=== PATIENT | male | born 1940 | race Hispanic/Latino ===

== ENCOUNTER → 2018-01-28 | Outpatient (CLI) | payer OTHER ==
[~2018-01-28] MED LIST: ASPI-555 PO; CLOP75TA32 PO; ISOS30TA6 PO; REGADENOSON 0.4 MG/5 ML PF SYG IVP SCH; SIMV40TA59 PO; [UNRECOGNIZED DRUG - OTHER] PO
== END | disposition home or self-care (01) ==
LOC: SHCH 08:23
PROVIDERS: ATTEND Internal Medicine Cardiovascular Disease
DX: R06.09 Other forms of dyspnea (principal)
CPT/HCPCS: 78452; 93017; 96374; A9500 ×2

== ENCOUNTER 2018-02-25 00:34 | Inpatient (IN) | payer OTHER | END 2018-03-01 16:25 | disposition home or self-care (01) | LOC: EDH 00:34 → EDHIP 03:45 → 3CH 04:19 | DX: I50.22 Chronic systolic (congestive) heart failure (principal); N18.6 End stage renal disease; D68.59 Other primary thrombophilia; I13.2 Hypertensive heart and chronic kidney disease with heart failure and with stage 5 chronic kidney disease, or end stage renal disease; C90.00 Multiple myeloma not having achieved remission; I25.10 Atherosclerotic heart disease of native coronary artery without angina pectoris; R74.8 Abnormal levels of other serum enzymes; Z99.2 Dependence on renal dialysis; W19.XXXA Unspecified fall, initial encounter; I44.1 Atrioventricular block, second degree; I25.5 Ischemic cardiomyopathy; Z95.1 Presence of aortocoronary bypass graft ==

== ENCOUNTER → 2018-03-11 | Outpatient (CLI) | payer OTHER ==
[~2018-03-11] MED LIST changes: +ACET325T51 PO; +ASCO500T9 PO; -ASPI-555 PO; +ATOR40TA69 PO; -CLOP75TA32 PO; +DOCU100C33 PO; +FERR325T22 PO; +FOLI1TAB85 PO; -ISOS30TA6 PO; +LACT10SO9 PO; +LISI2.5T2 PO; +PANT40TA25 PO; -REGADENOSON 0.4 MG/5 ML PF SYG IVP SCH; -SIMV40TA59 PO; +TRAM50TA4 PO; -[UNRECOGNIZED DRUG - OTHER] PO
== END | disposition home or self-care (01) ==
LOC: SHCH 13:56
PROVIDERS: ATTEND Internal Medicine Cardiovascular Disease
DX: R60.0 Localized edema (principal)
CPT/HCPCS: 93970

== ENCOUNTER 2018-03-17 09:37 | Inpatient (IN) | payer OTHER ==
[~2018-03-17] VITALS: Ht 180.3 cm; Wt 73.6 kg
[2018-03-17] MEDS ORDERED: FUROSEMIDE 10 MG/ML 4ML VIAL ONE (10:16)
[2018-03-17] MEDS ORDERED: ZOSYN 3.375GM+NS 50ML 50 ML IV ONE (10:16)
[2018-03-17] MEDS ORDERED: SODIUM CHLORIDE 0.9% 50 ML IV ONE (10:16)
[2018-03-17 10:26] LABS: BASOPHILS % (AUTO) 0.3 % (0.0-5.0); HEMATOCRIT 28.9 % (42-54); LYMPHOCYTES % (AUTO) 14.7 % (21.0-51.0); MEAN CORPUSCULAR HEMOGLOBIN 31.6 pg (27.0-33.0); MEAN CORPUSCULAR HGB CONC 32.8 g/dL (32.0-36.0); MEAN CORPUSCULAR VOLUME 96.2 fL (79-99); MONOCYTES % (AUTO) 9.6 % (3.0-13.0); NEUTROPHILS % (AUTO) 74.4 % (40.0-77.0); PLATELET COUNT (AUTO) 117 K/uL (130-400); RED CELL DISTRIBUTION WIDTH 18.5 % (11.0-15.5); WHITE BLOOD COUNT (AUTO) 7.6 K/uL (4.8-10.8)
[2018-03-17 10:43] LABS: CREATININE 6.5 mg/dL (0.5-1.5); POTASSIUM 4.1 mmol/L (3.5-5.1)
[2018-03-17 10:44] LABS: INR 1.09 (0.85-1.15); PARTIAL THROMBOPLASTIN TIME 27.7 SEC (26.3-35.5); PROTHROMBIN TIME 11.4 SEC (9.6-11.6)
[2018-03-17 10:49] LABS: ALBUMIN 2.9 g/dL (3.5-5.0); TOTAL PROTEIN, SERUM 6.5 g/dL (6.0-8.3)
[2018-03-17 10:57] LABS: B-TYPE NATRIURETIC PEPTIDE > 5000 pg/mL (0-100)
[2018-03-17] MEDS ORDERED: HYDRALAZINE HCL 20 MG/ML VIAL IV PRN (12:45)
[2018-03-17] MEDS ORDERED: MORPHINE SULFATE 2 MG/ML 1ML SYG IV PRN (12:45)
[2018-03-17] MEDS ORDERED: LACTULOSE 20 GM/30 ML UDCUP PO PRN ×2 (12:45)
[2018-03-17] MEDS ORDERED: ONDANSETRON HCL 4 MG/2 ML VIAL IV PRN (12:45)
[2018-03-17] MEDS ORDERED: ACETAMINOPHEN 325 MG TAB PO PRN ×2 (12:45)
[2018-03-17 18:18] VITALS: BP 132/76
--- NOTE | 2018-03-17 18:19 | NUR ---
Patient received from ER. Patient came in with shortness of breath. Patient was diagnosed with pulmonary edema. Patient unable to attend his regular HD session today due to shortness of breath. Dr. Rodriguez was consulted. Dr. Gonzales was oncall for Michael. Will await call back to update on patient and the possibility of HD today. Patient was able to ambulate from Er bed to room bed with no problems. Patient is alert and orientated x3, pulses are are equal and strong. Pupils are equal and brisk. Lungs sound diminished and congested. Bowel sounds are normal. Patient has bilateral lower extremity edema +2.
[2018-03-17 19:18] LABS: ABG BASE EXCESS 4.3 mmol/L (-2.0-3.0); ABG HCO3 27.4 mmol/L (21.0-28.0); ABG OXYGEN SATURATION 95.1 % (95.0-99.0); ABG PCO2 36 mmHg (35-48)
[2018-03-17 19:25] VITALS: BP 130/71
[2018-03-17] MEDS: ATORVASTATIN CALCIUM 40 MG TABLET PO SCH (21:01)
[2018-03-17 23:12] VITALS: BP 143/79
[2018-03-18 03:49] VITALS: BP 139/76
[2018-03-18] MEDS: TRAMADOL HCL 50 MG TABLET PO PRN ×2 (04:16→18:33)
--- NOTE | 2018-03-18 05:05 | NUR ---
LEFT MESSAGE WITH SANJAY LOO WITH [facility]UTE DIALYSIS C[facility].
[2018-03-18 07:00] VITALS: BP 129/79
[2018-03-18] MEDS ORDERED: ENOXAPARIN SODIUM 30 MG/0.3 ML SQ SCH (09:00)
[2018-03-18] MEDS: DOCUSATE SODIUM 100 MG CAP PO SCH (10:09)
[2018-03-18] MEDS: FERROUS SULFATE 325 MG TABLET.DR PO SCH (10:09)
[2018-03-18] MEDS: ASCORBIC ACID 500 MG TAB PO SCH (10:09)
[2018-03-18] MEDS: PANTOPRAZOLE SODIUM 40 MG TABLET.DR PO SCH (10:09)
[2018-03-18] MEDS: FOLIC ACID/VITAMIN B COMP W-C 1 MG CAPSULE PO SCH (10:10)
[2018-03-18] MEDS: LISINOPRIL 2.5 MG TABLET PO SCH (10:10)
[2018-03-18 11:00] VITALS: BP 135/76
[2018-03-18] MEDS ORDERED: SODIUM CHLORIDE 0.9% 1000ML 1,000 ML IV ONE (11:05)
[2018-03-18] MEDS ORDERED: SODIUM CHLORIDE 3% FOR INHALATION 4 ML/AMP VIAL.NEB IH ONE (12:01)
[2018-03-18] MEDS ORDERED: HEPARIN SODIUM 5000UNIT/ML 1ML VIAL ONE (13:40)
[2018-03-18 16:00] VITALS: BP 126/64
--- NOTE | 2018-03-18 17:02 | NUR ---
DC Plan Discussed dcp with patient. Lives w/ . Denies provider or services. Has standard walker and cane. Goes to [facility] in [place] on . Denies having transportation issues to/from HD. States either drives self or will drive. 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 Discussed possible need for rehab in facility. Patient declined and verbalized felt safe returning home. DCP to home w/ . CD Addendum: 03/18/18 at 1704 by SUSANA AVELAR CM Amended: Links added.
[2018-03-18] MEDS ORDERED: SODIUM CHLORIDE 0.9% 1000ML 1,000 ML IV SCH (18:05)
[2018-03-18] MEDS ORDERED: HEPARIN SODIUM 5000UNIT/ML 1ML VIAL IJ PRN (18:15)
[2018-03-18 20:03] VITALS: BP 122/69
[2018-03-18] MEDS: ATORVASTATIN CALCIUM 40 MG TABLET PO SCH (21:13)
[2018-03-18 23:49] VITALS: BP 99/57
[2018-03-19 04:29] VITALS: BP 131/73
[2018-03-19 06:23] LABS: HEMATOCRIT 26.9 % (42-54); MEAN CORPUSCULAR HEMOGLOBIN 31.6 pg (27.0-33.0); MEAN CORPUSCULAR HGB CONC 32.7 g/dL (32.0-36.0); MEAN CORPUSCULAR VOLUME 96.5 fL (79-99); PLATELET COUNT (AUTO) 76 K/uL (130-400); RED BLOOD CELL COUNT(AUTO) 2.79 MIL/uL (4.50-6.20); RED CELL DISTRIBUTION WIDTH 18.7 % (11.0-15.5); WHITE BLOOD COUNT (AUTO) 6.3 K/uL (4.8-10.8)
[2018-03-19 06:45] LABS: TROPONIN I 0.19 ng/mL (0.00-0.06)
[2018-03-19 07:06] LABS: CREATININE 5.9 mg/dL (0.5-1.5); POTASSIUM 3.1 mmol/L (3.5-5.1); THYROID STIMULATING HORMONE 3.96 uIU/mL (0.36-3.74)
[2018-03-19 07:48] VITALS: BP 127/73
[2018-03-19 08:22] LABS: HEPATITIS A ANTIBODY IGM Negative (Negative); HEPATITIS B CORE IGM Negative (Negative); HEPATITIS Bs ANTIGEN SCREEN P Negative (Negative)
[2018-03-19 11:38] VITALS: BP 103/80
[2018-03-19] MEDS: PANTOPRAZOLE SODIUM 40 MG TABLET.DR PO SCH (12:33)
[2018-03-19] MEDS: ASCORBIC ACID 500 MG TAB PO SCH (12:33)
[2018-03-19] MEDS: FERROUS SULFATE 325 MG TABLET.DR PO SCH (12:33)
[2018-03-19] MEDS: FOLIC ACID/VITAMIN B COMP W-C 1 MG CAPSULE PO SCH (12:33)
[2018-03-19] MEDS: DOCUSATE SODIUM 100 MG CAP PO SCH (12:34)
[2018-03-19] MEDS: LISINOPRIL 2.5 MG TABLET PO SCH (12:34)
[2018-03-19] MEDS ORDERED: POTASSIUM CHLORIDE 10% ELIXIR 20 MEQ/15 ML UDCUP PO SCH (12:45)
[2018-03-19] MEDS ORDERED: SODIUM CHLORIDE 0.9% 1000ML 1,000 ML IV SCH (12:52)
[2018-03-19] MEDS ORDERED: HEPARIN SODIUM 5000UNIT/ML 1ML VIAL IJ PRN (13:00)
[2018-03-19 16:29] VITALS: BP 131/68
[2018-03-19 19:21] VITALS: BP 128/87
[2018-03-19] MEDS: ATORVASTATIN CALCIUM 40 MG TABLET PO SCH (20:37)
[2018-03-19] MEDS: TRAMADOL HCL 50 MG TABLET PO PRN (20:45)
[2018-03-19 23:55] VITALS: BP 132/65
[2018-03-20] VITALS (7 sets, daily range): BP systolic 127–152; BP diastolic 68–86
[2018-03-20 05:02] LABS: HEMATOCRIT 27.4 % (42-54); MEAN CORPUSCULAR HEMOGLOBIN 32.1 pg (27.0-33.0); MEAN CORPUSCULAR HGB CONC 33.2 g/dL (32.0-36.0); MEAN CORPUSCULAR VOLUME 96.4 fL (79-99); PLATELET COUNT (AUTO) 54 K/uL (130-400); RED BLOOD CELL COUNT(AUTO) 2.84 MIL/uL (4.50-6.20); RED CELL DISTRIBUTION WIDTH 18.7 % (11.0-15.5); WHITE BLOOD COUNT (AUTO) 5.9 K/uL (4.8-10.8)
[2018-03-20 05:17] LABS: INR 1.06 (0.85-1.15); PARTIAL THROMBOPLASTIN TIME 29.9 SEC (26.3-35.5); PROTHROMBIN TIME 11.1 SEC (9.6-11.6)
[2018-03-20 05:31] LABS: CREATININE 4.8 mg/dL (0.5-1.5); POTASSIUM 3.8 mmol/L (3.5-5.1)
[2018-03-20] MEDS: ASCORBIC ACID 500 MG TAB PO SCH (08:13)
[2018-03-20] MEDS: PANTOPRAZOLE SODIUM 40 MG TABLET.DR PO SCH (08:13)
[2018-03-20] MEDS: FOLIC ACID/VITAMIN B COMP W-C 1 MG CAPSULE PO SCH (08:13)
[2018-03-20] MEDS: LISINOPRIL 2.5 MG TABLET PO SCH (08:13)
[2018-03-20] MEDS: FERROUS SULFATE 325 MG TABLET.DR PO SCH (08:13)
[2018-03-20] MEDS: DOCUSATE SODIUM 100 MG CAP PO SCH (08:13)
--- NOTE | 2018-03-20 08:30 | NUR ---
AM ASSESSMENT PT LAYING IN BED, HOB ELEVATE 30 DEGREES, RESTING. PT STATES, "I'M NOT FEELING WELL TODAY. I FELL WEAK, IT ALWAYS HAPPENS AFTER DIALYSIS." SOB ON EXERTION. NO DISTRESS NOTED. O2 NC @ 2L. DENIES CHEST PAIN OR DISCOMFORT. DENIES PALPITATIONS. TELE: SR 90-STACH 100s. DENIES N/V AND/OR DIARRHEA. PT TO HAVE HD FRI. POSS RT THORACENTESIS TODAY, PENDING DR PUENTE TO REVIEW CXR. INSTRUCTED TO CALL FOR ASSISTANCE. CALL VENU W/IN REACH.
--- NOTE | 2018-03-20 12:45 | NUR ---
MD VISIT DR PUENTE IN TO SEE PT. CXR REVIEWED, NO RT THORACENTESIS ORDERED. FAMILY @ BEDSIDE. PT'S STATUS & PLAN OF CARE DISCUSSED W/PT & FAMILY BY DR PUENTE.
--- NOTE | 2018-03-20 15:35 | NUR ---
ONCOLOGY F/U ON ONCOLOGY CONSULT, DR HOWELL'S OFFICE CALLED. CONSULT INFO GIVEN.
[2018-03-20] MEDS: ATORVASTATIN CALCIUM 40 MG TABLET PO SCH (21:47)
[2018-03-21 03:48] LABS: MEAN CORPUSCULAR HEMOGLOBIN 32.2 pg (27.0-33.0); MEAN CORPUSCULAR VOLUME 97.7 fL (79-99); PLATELET COUNT (AUTO) 74 K/uL (130-400); RED BLOOD CELL COUNT(AUTO) 2.86 MIL/uL (4.50-6.20); RED CELL DISTRIBUTION WIDTH 19.4 % (11.0-15.5); WHITE BLOOD COUNT (AUTO) 7.7 K/uL (4.8-10.8)
[2018-03-21 03:59] LABS: CREATININE 5.9 mg/dL (0.5-1.5); POTASSIUM 3.8 mmol/L (3.5-5.1)
[2018-03-21 04:09] VITALS: BP 147/86
[2018-03-21 04:11] LABS: B-TYPE NATRIURETIC PEPTIDE > 5000 pg/mL (0-100)
[2018-03-21 07:15] VITALS: BP 142/65
[2018-03-21] MEDS: PANTOPRAZOLE SODIUM 40 MG TABLET.DR PO SCH (10:35)
[2018-03-21] MEDS: FOLIC ACID/VITAMIN B COMP W-C 1 MG CAPSULE PO SCH (10:35)
[2018-03-21] MEDS: DOCUSATE SODIUM 100 MG CAP PO SCH (10:35)
[2018-03-21] MEDS: LISINOPRIL 2.5 MG TABLET PO SCH (10:35)
[2018-03-21] MEDS: FERROUS SULFATE 325 MG TABLET.DR PO SCH (10:35)
[2018-03-21] MEDS: ASCORBIC ACID 500 MG TAB PO SCH (10:35)
[2018-03-21] MEDS: ASPIRIN 81 MG EC TAB PO SCH (10:36)
[2018-03-21] MEDS: METOPROLOL TARTRATE 25 MG TAB PO SCH ×2 (10:36→20:09)
[2018-03-21 11:07] VITALS: BP 142/82
--- NOTE | 2018-03-21 12:30 | NUR ---
DR. HOWELL IS IN TO SEE PATIENT. PATIENT MAY F/U WITH HIM IN HIS OFFICE FOR CONTINUATION OF CHEMOTHERAPY ONCE DISCHARGED
--- NOTE | 2018-03-21 15:03 | NUR ---
Nutrition Intervention: Nutrition screen based on LOS x 4 days. Pt. admitted with Dx of End Stage Renal Disease, Fluid Overload. Pt. on Renal Dialysis diet. Pt. reports good p.o. intake. Labs reviewed(Alb 2.9, BUN 43, Creat 5.9, GFR 10). LBM: 03/17/18. Pt. on colace/lactulose for lower GI distress. SR-20, elastic. BMI: 23.2, normal for age. Pt. reports HD tx was first initiated on December 2017. Pt. educated on Renal Dialysis diet, 1500ml fluid Rest. and provided with education material. Pt. verbalized understanding. Recommendations: 1) Rec. Heart Healthy Renal Dialysis diet. 2) Rec. 30ml ProMod BID with B'fast and dinner meals. 3) Continue to monitor pt's nutritional status. 4) RD to follow-up in 5-7 days. Addendum: 03/21/18 at [address] Amended: Links added.
[2018-03-21 16:32] VITALS: BP 133/79
--- NOTE | 2018-03-21 19:11 | NUR ---
MT PLAN DR. PUENTE ORDER INPATIENT REHAB. CALLED [facility] AND [facility] BOTH SAID NO TO REFERRAL PATIENT DOES NOT HAVE PRIMARY ISSUE. AND 40 % DEBILITY BEDS ARE ALREADY FILLED. LET PATIENT KNOW THAT [facility] WOULD BE WILLING TO TRY. PER PATIENT DOES NOT WANT TO GO TO [place]. DANDY SIGNED FOR [facility]. NO PT EVAL DONE YET. PLACED ORDER. INFO SENT BUT WITH MISSING PT INSURANCE COULD NOT PROCESS. WILL NOW HAVE TO WAIT TILL SATURDAY. Addendum: 03/21/18 at 1914 by MARK JUAN RN CM Amended: Links added.
[2018-03-21 19:38] VITALS: BP 134/79
[2018-03-21] MEDS: ATORVASTATIN CALCIUM 40 MG TABLET PO SCH (20:09)
[2018-03-21 23:40] VITALS: BP 142/88
[2018-03-22 03:44] VITALS: BP 142/70
[2018-03-22 07:33] VITALS: BP 148/93
[2018-03-22] MEDS ORDERED: METO25 PO (09:14)
[2018-03-22] MEDS ORDERED: AEC81 PO (09:14)
[2018-03-22] MEDS: LISINOPRIL 2.5 MG TABLET PO SCH (09:55)
[2018-03-22] MEDS: METOPROLOL TARTRATE 25 MG TAB PO SCH ×2 (09:55→20:51)
[2018-03-22] MEDS: DOCUSATE SODIUM 100 MG CAP PO SCH (09:55)
[2018-03-22] MEDS: ASCORBIC ACID 500 MG TAB PO SCH (09:55)
[2018-03-22] MEDS: PANTOPRAZOLE SODIUM 40 MG TABLET.DR PO SCH (09:55)
[2018-03-22] MEDS: FERROUS SULFATE 325 MG TABLET.DR PO SCH (09:55)
[2018-03-22] MEDS: FOLIC ACID/VITAMIN B COMP W-C 1 MG CAPSULE PO SCH (09:55)
[2018-03-22] MEDS: ASPIRIN 81 MG EC TAB PO SCH (10:03)
[2018-03-22 11:26] VITALS: BP 133/78
[2018-03-22 16:35] VITALS: BP 148/89
--- NOTE | 2018-03-22 19:46 | NUR ---
IP REHAB AT [facility]? ORDER REC'D - DR. PUENTE ASKED 'PLS TRY TO GET PT IN AT [facility]- NEEDS MORE THAN SNF". CALL TO DEDE AT [phone] PENDING PTX NOTES THAT EMPHASIZE THE NEED FOR COMPLEX REHAB. DANDY SIGNED, EXPLAINED AUTH PROCESS TO FAMILY- MAY NOT GET IN. PT DOES NOT REALLY WANT T O GO TO ANY FACILITY NOTE LEFT FOR CM.
[2018-03-22 19:54] VITALS: BP 125/89
[2018-03-22] MEDS: ATORVASTATIN CALCIUM 40 MG TABLET PO SCH (20:51)
[2018-03-22 23:53] VITALS: BP 126/67
[2018-03-23 04:05] VITALS: BP 131/79
[2018-03-23 04:09] LABS: HEMATOCRIT 26.9 % (42-54); MEAN CORPUSCULAR HEMOGLOBIN 32.3 pg (27.0-33.0); MEAN CORPUSCULAR HGB CONC 32.9 g/dL (32.0-36.0); MEAN CORPUSCULAR VOLUME 98.2 fL (79-99); NUCLEATED RED BLOOD CELLS 0.1 % (0.0-0.19); PLATELET COUNT (AUTO) 69 K/uL (130-400); RED BLOOD CELL COUNT(AUTO) 2.74 MIL/uL (4.50-6.20); RED CELL DISTRIBUTION WIDTH 19.6 % (11.0-15.5); WHITE BLOOD COUNT (AUTO) 6.3 K/uL (4.8-10.8)
[2018-03-23 04:19] LABS: CREATININE 6.3 mg/dL (0.5-1.5); POTASSIUM 3.7 mmol/L (3.5-5.1)
[2018-03-23 07:37] VITALS: BP 129/75
--- NOTE | 2018-03-23 09:10 | NUR ---
DR. PUENTE IS IN TO SEE PATIENT. PATIENT IS PENDING REHAB PLACEMENT.
--- NOTE | 2018-03-23 10:00 | NUR ---
DCP UPDATE: Spoke w Dr. Cardoza this am regarding [facility] recommendations for IRU and [facility] referral-which was initiated on Saturday. Per Dr. Cardoza pt is ambulating well and is requesting dc home. Dr. cardoza states will cancel ALOC requests and plan to dc pt home today. Primary nurse present and aware.
[2018-03-23] MEDS: PANTOPRAZOLE SODIUM 40 MG TABLET.DR PO SCH (10:13)
[2018-03-23] MEDS: ASPIRIN 81 MG EC TAB PO SCH (10:13)
[2018-03-23] MEDS: FOLIC ACID/VITAMIN B COMP W-C 1 MG CAPSULE PO SCH (10:13)
[2018-03-23] MEDS: DOCUSATE SODIUM 100 MG CAP PO SCH (10:13)
[2018-03-23] MEDS: ASCORBIC ACID 500 MG TAB PO SCH (10:13)
[2018-03-23] MEDS: FERROUS SULFATE 325 MG TABLET.DR PO SCH (10:14)
[2018-03-23] MEDS: LISINOPRIL 2.5 MG TABLET PO SCH (10:14)
[2018-03-23] MEDS: METOPROLOL TARTRATE 25 MG TAB PO SCH ×2 (10:14→20:29)
--- NOTE | 2018-03-23 10:15 | NUR ---
DR. JAMES IS MAKING HIS ROUNDS.
[2018-03-23] MEDS ORDERED: DOCU-116 PO (11:09)
[2018-03-23 11:12] VITALS: BP 125/70
--- NOTE | 2018-03-23 14:44 | NUR ---
INFORMED DR. JAMES THAT IS VERY CONCERNED ABOUT PATIENT GOING HOME AND NOT REHAB. SHE WAS REQUESTING FOR MD TO RECONSIDER SENDING HIM TO REHAB RECOMMENDED BY DR. PUENTE YESTERDAY. DR. JAMES SAID TO INFORM CASE MANAGEMENT ABOUT THIS SO REFERRAL TO INPATIENT REHAB CAN BE SUBMITTED. ADDISON GONZALES IS AWARE.
[2018-03-23] MEDS ORDERED: BUSPIRONE HCL 5 MG TABLET PO PRN (15:00)
--- NOTE | 2018-03-23 15:20 | NUR ---
[facility] Received call from primary nurse, pt/family with change in mind, requesting [facility] referral. Order ok'd by Dr. Cardoza. Clinical/referral faxed to [facility]. Spoke audi Zur[place], [facility] will inform Kala of new referral. CM to continue to follow.
[2018-03-23 15:52] VITALS: BP 140/76
[2018-03-23 20:20] VITALS: BP 146/77
[2018-03-23] MEDS: ATORVASTATIN CALCIUM 40 MG TABLET PO SCH (20:29)
[2018-03-23] MEDS: TRAMADOL HCL 50 MG TABLET PO PRN (21:40)
[2018-03-23 23:44] VITALS: BP 108/66
[2018-03-24 03:53] VITALS: BP 118/71
[2018-03-24 07:22] VITALS: BP 122/63
--- NOTE | 2018-03-24 07:55 | NUR ---
ASSESSMENT ENCOUNTERED PT ASLEEP BUT AROUSEABLE, A&OX3, CALM COOPERATIVE AND DOES NOT APPEAR TO BE IN ANY DISTRESS NOR ANY NEURO DEFICITS PRESENT. PT IS AMBULATORY, GAIT SLOW BUT STEADY WITH ASSIST. PT IS ABLE TO TOLERATE FOODS, FLUIDS AND MEDICATION WITH NO THROAT CLEARING OR COUGH. CALL LIGHT WITHIN REACH, DIALYSIS PERSONNEL AT BEDSIDE TO INITIATE HEMODIALYSIS.
[2018-03-24 11:21] VITALS: BP 107/60
[2018-03-24 16:13] VITALS: BP 111/58
--- NOTE | 2018-03-24 16:23 | NUR ---
DC Plan Patient now wants to go home. Ambulating per self. Pending home O2 eval. Followed up with RT. States will follow up on status of eval. CM to continue to follow. Cancelled referral to [facility] and CD
--- NOTE | 2018-03-24 17:16 | NUR ---
DC Plan Patient requested to speak with CM. Asked about outpatient physical therapy. Informed patient and family at bedside that patient will need to follow w/ PMD Dr. Eduardo Sevilla regarding outpatient PT vs HH w/ PT. Patient/family verbalized understanding. Patient states still feels safe returning home upon dc. Family in agreement with plan. CHF/ESRD education provided by attending, bedside nurse, and CM. Nurse provided scale for patient to take home to weigh daily, at the same time. Pt encouraged to record weight and take log to HD center. CD Addendum: 03/24/18 at 1719 by SUSANA AVELAR CM Amended: Links added.
--- NOTE | 2018-03-24 18:00 | NUR ---
DISCHARGE INSTRUCTIONS GIVEN, PIV REMOVED AND INTACT, WEIGHT SCALE PROVIDED FOR DAILY WEIGHT MEASUREMENT AT HOME. DISCHARGED HOME TO FAMILY VEHICLE VIA WHEELCHAIR.
== END 2018-03-24 18:46 | disposition home or self-care (01) | DRG 871 ==
LOC: EDH 09:37 → EDHIP 12:40 → 2DH 18:06
PROVIDERS: ADMIT Internal Medicine; ATTEND Internal Medicine
PROC: 5A1D70Z Performance of Urinary Filtration, Intermittent, Less than 6 Hours Per Day (ICD-10-PCS; 2018-03-18)
PROC: 5A1D70Z Performance of Urinary Filtration, Intermittent, Less than 6 Hours Per Day (ICD-10-PCS; 2018-03-19)
PROC: 5A1D70Z Performance of Urinary Filtration, Intermittent, Less than 6 Hours Per Day (ICD-10-PCS; principal; 2018-03-21)
PROC: 5A1D70Z Performance of Urinary Filtration, Intermittent, Less than 6 Hours Per Day (ICD-10-PCS; 2018-03-24)
DX: A41.9 Sepsis, unspecified organism (principal); I50.43 Acute on chronic combined systolic (congestive) and diastolic (congestive) heart failure; N18.6 End stage renal disease; J18.9 Pneumonia, unspecified organism; I13.2 Hypertensive heart and chronic kidney disease with heart failure and with stage 5 chronic kidney disease, or end stage renal disease; D68.59 Other primary thrombophilia; C85.90 Non-Hodgkin lymphoma, unspecified, unspecified site; C90.00 Multiple myeloma not having achieved remission; E46 Unspecified protein-calorie malnutrition; J44.0 Chronic obstructive pulmonary disease with (acute) lower respiratory infection; J98.11 Atelectasis; Z99.2 Dependence on renal dialysis; E78.5 Hyperlipidemia, unspecified; I25.10 Atherosclerotic heart disease of native coronary artery without angina pectoris; D64.9 Anemia, unspecified; D69.6 Thrombocytopenia, unspecified; D89.9 Disorder involving the immune mechanism, unspecified; E03.9 Hypothyroidism, unspecified; G47.33 Obstructive sleep apnea (adult) (pediatric); I08.3 Combined rheumatic disorders of mitral, aortic and tricuspid valves; I27.29 Other secondary pulmonary hypertension; R65.20 Severe sepsis without septic shock; I48.91 Unspecified atrial fibrillation; K21.0 Gastro-esophageal reflux disease with esophagitis; K44.9 Diaphragmatic hernia without obstruction or gangrene; N13.9 Obstructive and reflux uropathy, unspecified; I44.1 Atrioventricular block, second degree; Z80.52 Family history of malignant neoplasm of bladder; Z80.7 Family history of other malignant neoplasms of lymphoid, hematopoietic and related tissues; Z80.8 Family history of malignant neoplasm of other organs or systems; Z82.0 Family history of epilepsy and other diseases of the nervous system; Z82.3 Family history of stroke; Z68.22 Body mass index [BMI] 22.0-22.9, adult; Z82.49 Family history of ischemic heart disease and other diseases of the circulatory system; Z82.5 Family history of asthma and other chronic lower respiratory diseases; Z83.3 Family history of diabetes mellitus; Z85.828 Personal history of other malignant neoplasm of skin; Z87.891 Personal history of nicotine dependence; Z92.21 Personal history of antineoplastic chemotherapy; Z95.1 Presence of aortocoronary bypass graft; Z95.5 Presence of coronary angioplasty implant and graft
CPT/HCPCS: 36415; 36600; 71045; 71046; 71250; 78580; 80048; 80053; 80074; 82550; 82803; 83520; 83735; 83874; 83880; 84443; 84484; 85025; 85027; 85610; 85730; 86038; 86140; 86215; 86235; 86255; 86431; 87040; 87486; 87581; 87633; 87798; 90935; 93005; 94640; 94760; A9540; G0378; J1644; J1650; J1940; J2543; J7030

== ENCOUNTER 2018-05-03 15:42 | Observation (INO) | payer OTHER ==
[~2018-05-03] VITALS: Ht 180.3 cm; Wt 70.6 kg
[~2018-05-03 15:42] MED LIST changes: +AEC81 PO; +DOCU-116 PO; +METO25 PO
[2018-05-03 16:44] LABS: BASOPHILS % (AUTO) 0.3 % (0.0-5.0); HEMATOCRIT 36.1 % (42-54); LYMPHOCYTES % (AUTO) 5.6 % (21.0-51.0); MEAN CORPUSCULAR HEMOGLOBIN 32.9 pg (27.0-33.0); MEAN CORPUSCULAR HGB CONC 32.8 g/dL (32.0-36.0); MEAN CORPUSCULAR VOLUME 100.4 fL (79-99); MONOCYTES % (AUTO) 9.3 % (3.0-13.0); NEUTROPHILS % (AUTO) 84.8 % (40.0-77.0); NUCLEATED RED BLOOD CELLS 0.1 % (0.0-0.19); PLATELET COUNT (AUTO) 73 K/uL (130-400); RED CELL DISTRIBUTION WIDTH 19.6 % (11.0-15.5); WHITE BLOOD COUNT (AUTO) 9.5 K/uL (4.8-10.8)
[2018-05-03 16:58] LABS: CREATININE 3.9 mg/dL (0.5-1.5); POTASSIUM 3.1 mmol/L (3.5-5.1)
[2018-05-03 17:09] LABS: ALBUMIN 3.7 g/dL (3.5-5.0); BILIRUBIN,TOTAL 1.1 mg/dL (0.2-1.0); TOTAL PROTEIN, SERUM 7.1 g/dL (6.0-8.3)
[2018-05-03 17:30] LABS: B-TYPE NATRIURETIC PEPTIDE > 5000 pg/mL (0-100)
[2018-05-03 18:00] LABS: INR 1.07 (0.85-1.15); PARTIAL THROMBOPLASTIN TIME 28.9 SEC (26.3-35.5); PROTHROMBIN TIME 11.2 SEC (9.6-11.6)
[2018-05-03] MEDS ORDERED: ONDANSETRON HCL 4 MG/2 ML VIAL ONE (18:30)
[2018-05-03] MEDS: PANTOPRAZOLE 40 MG/VIAL IVP SCH (19:30)
[2018-05-03] MEDS ORDERED: ONDANSETRON HCL 4 MG/2 ML VIAL IVP PRN (19:30)
[2018-05-03] MEDS ORDERED: MORPHINE SULFATE 2 MG/ML 1ML SYG IVP PRN (19:30)
[2018-05-03] MEDS ORDERED: ACETAMINOPHEN 325 MG TAB PO PRN (19:30)
[2018-05-03] MEDS ORDERED: LIDOCAINE HCL 1% 20 ML VIAL ONE (19:37)
[2018-05-03] MEDS ORDERED: POTASSIUM CHLORIDE 20MEQ/100ML 100 ML IV ONE (19:38)
[2018-05-03] MEDS ORDERED: METOCLOPRAMIDE 10 MG/2 ML VIAL ONE (19:51)
[2018-05-04 00:12] VITALS: BP 139/80
[2018-05-04] MEDS ORDERED: LORAZEPAM 2 MG/ML 1 ML VIAL IVP SCH (00:30)
[2018-05-04 01:23] LABS: TROPONIN I 0.14 ng/mL (0.00-0.06)
[2018-05-04 04:22] VITALS: BP 129/86
[2018-05-04] MEDS: METOCLOPRAMIDE 10 MG/2 ML VIAL IVP SCH ×4 (05:41→13:30)
[2018-05-04] MEDS ORDERED: LOSA25TA41 PO (06:07)
[2018-05-04] MEDS ORDERED: HYDR-3421 PO (06:07)
[2018-05-04] MEDS ORDERED: BENZ-51 PO (06:07)
[2018-05-04] MEDS ORDERED: DEXA4TAB PO (06:07)
[2018-05-04] MEDS ORDERED: POTA-79 PO (06:07)
[2018-05-04] MEDS: PANTOPRAZOLE 40 MG/VIAL IVP SCH ×2 (07:30→18:45)
--- NOTE | 2018-05-04 07:50 | NUR ---
PATIENT UPDATE ADMITTED A 78 YR OLD MALE FROM ER FOR CERVICAL FRACTURE S/P FALL AND INTRACTABLE NAUSEA AND VOMITING. WITH CERVICAL COLLAR FROM ER, O2 ON AT 2L PER NASAL CANNULA. COARSE CRACKLES PER AUSCULTATION, BNP GREATER THAN 5,000, BLE WITH 3+ PITTING EDEMA. RECEIVED WITH ONGOING 20MEQ KCL IVPB FROM ER FOR A k+ OF 3.1. AN ESRD PT ON HD q MWF. DENIES ANY CHEST PAIN, WITH A POSITIVE TROPONIN LEVEL FROM ER, NO ORDERS FOR TELEMETRY MONITORING.NO COMPLAINTS OF ANY ABDOMINAL PAIN OVERNIGHT, NO NAUSEA NOR VOMITING. PENDING AN MRI OF THE SPINE THIS AM WHICH WASN'T DONE LAST NIGHT BEC PT WAS VERY ANXIOUS, WITH PRE MED ORDERS PRIOR TO MRI THIS AM. SLEPT WELL OVERNIGHT, PENDING CONSULTS WITH DR. ROSALES WELL DR. WEBER. VITAL SIGNS STABLE.
[2018-05-04 08:00] VITALS: BP 136/79
[2018-05-04 08:05] LABS: HEMATOCRIT 32.1 % (42-54); MEAN CORPUSCULAR HEMOGLOBIN 32.9 pg (27.0-33.0); MEAN CORPUSCULAR HGB CONC 32.7 g/dL (32.0-36.0); MEAN CORPUSCULAR VOLUME 100.7 fL (79-99); PLATELET COUNT (AUTO) 69 K/uL (130-400); RED BLOOD CELL COUNT(AUTO) 3.19 MIL/uL (4.50-6.20); RED CELL DISTRIBUTION WIDTH 19.9 % (11.0-15.5); WHITE BLOOD COUNT (AUTO) 9.2 K/uL (4.8-10.8)
[2018-05-04 08:47] LABS: CREATININE 4.5 mg/dL (0.5-1.5); POTASSIUM 3.1 mmol/L (3.5-5.1)
[2018-05-04 10:01] LABS: TROPONIN I 0.15 ng/mL (0.00-0.06)
[2018-05-04] MEDS ORDERED: LORAZEPAM 2 MG/ML 1 ML VIAL ONE (11:42)
[2018-05-04 12:00] VITALS: BP 134/78
[2018-05-04 16:00] VITALS: BP 139/84
[2018-05-04] MEDS ORDERED: LACTULOSE 20 GM/30 ML UDCUP PO PRN (17:00)
[2018-05-04] MEDS ORDERED: BENZONATATE 100 MG CAPSULE PO PRN (17:00)
[2018-05-04] MEDS ORDERED: HYDROXYZINE HCL 25 MG TABLET PO SCH (17:00)
[2018-05-04] MEDS ORDERED: HYDROMORPHONE 4MG/ML 1ML VIAL IVP PRN (17:00)
[2018-05-04] MEDS ORDERED: HYDRALAZINE HCL 20 MG/ML VIAL IV PRN (17:00)
[2018-05-04] MEDS ORDERED: HYDROMORPHONE HCL 0.5 MG/0.5 ML ML IVP PRN (17:30)
--- NOTE | 2018-05-04 18:23 | NUR ---
INITIAL: Met with pt and spouse this afternoon to discuss dcp. Pt currently sleeping. Prior to admission pt required assistance w ADLs. He refused to use walker and was unsteady on his feet, per spouse he has had several falls. Pt has home O2, wc, 3in1 commode. Pt goes to [facility] for HD needs. Per spouse, pt may need short term SNF @ dc. He has been to [facility] in the past, however per spouse he may not be willing to consider SNF but she feels that he has declined in function and will benefit from SNF. Will continue to follow and wait for Md recommendations. Addendum: 05/04/18 at 1827 by ADDISON AUSTIN Amended: Links added.
[2018-05-04] MEDS: DOCUSATE SODIUM 100 MG CAP PO SCH (18:45)
[2018-05-04 19:12] VITALS: BP 133/71
--- NOTE | 2018-05-04 20:20 | NUR ---
CONSULT DR CASTANEDA IN TO SEE PT. VERBAL ORDERS GIVEN, PLEASE REFER TO CPOE.
[2018-05-04] MEDS ORDERED: ATORVASTATIN CALCIUM 40 MG TABLET PO SCH (21:00)
[2018-05-04] MEDS: METOPROLOL TARTRATE 25 MG TAB PO SCH (21:46)
--- NOTE | 2018-05-04 21:46 | NUR ---
MEDS DUE MEDS ADMINISTERED, TOLERATED WELL. KEPT COMFORTABLE AND RESTED. CALL LIGHT WITHIN REACH. WILL MONITOR PT.
--- NOTE | 2018-05-04 22:30 | NUR ---
COLLAR EXCHANGED CURRENT C-COLLAR TO A SOFT COLLAR. PT VERBALIZES RELIEF THE OTHER COLLAR WAS VERY STIFF AND HARD. POSITIONED COMFORTABLY IN BED. CALL LIGHT WITHIN REACH. WILL MONITOR PT.
[2018-05-05 00:15] VITALS: BP 137/80
--- NOTE | 2018-05-05 02:00 | NUR ---
ROUNDS PT RESTING WELL, FAIRLY ASLEEP WITH RESPIRATIONS EVEN AND UNLABORED. NO NOTED DISTRESS. KEPT UNDISTURBED FOR NOW. WILL CONTINUE TO MONITOR.
--- NOTE | 2018-05-05 03:00 | NUR ---
TELE RESOURCE NURSE MADE AWARE OF ORDER OF TELE MONITORING ON PT BUT WAS ENDORSED IN REPORT THAT NO MONITOR AVAILABLE.
[2018-05-05 04:10] VITALS: BP 140/84
--- NOTE | 2018-05-05 04:30 | NUR ---
TELE RESOURCE NURSE WAS ABLE TO FIND MONITOR FOR PT AND IS PLACED ON IT WITH RHYTHM READING OF SINUS WITH FREQUENT PAC'S WITH HR=80"S.
[2018-05-05 05:51] LABS: HEMATOCRIT 33.1 % (42-54); MEAN CORPUSCULAR HEMOGLOBIN 33.5 pg (27.0-33.0); MEAN CORPUSCULAR HGB CONC 33.1 g/dL (32.0-36.0); PLATELET COUNT (AUTO) 62 K/uL (130-400); RED BLOOD CELL COUNT(AUTO) 3.27 MIL/uL (4.50-6.20); RED CELL DISTRIBUTION WIDTH 19.6 % (11.0-15.5); WHITE BLOOD COUNT (AUTO) 8.4 K/uL (4.8-10.8)
[2018-05-05 06:13] LABS: INR 1.09 (0.85-1.15); PARTIAL THROMBOPLASTIN TIME 31.7 SEC (26.3-35.5); PROTHROMBIN TIME 11.4 SEC (9.6-11.6)
--- NOTE | 2018-05-05 06:15 | NUR ---
CONSULT DR TIA VASQUEZ VIA ANSWERING SERVICE. CALLED BACK AND REFERRED PT'S HD. MD ORDERED FOR HD TO CONTINUE IN HOSPITAL PT'S OUT PT SCHEDULE OF [facility]. RESOURCE NURSE MADE AWARE. PT ALREADY SIGNED CONSENT FOR HD, PLACED IN CHART. DIALYSIS NURSE MADE AWARE.
[2018-05-05 06:17] LABS: CREATININE 5.5 mg/dL (0.5-1.5); MAGNESIUM 2.3 mg/dL (1.80-2.40); THYROID STIMULATING HORMONE 2.69 uIU/mL (0.36-3.74)
[2018-05-05] MEDS: PANTOPRAZOLE 40 MG/VIAL IVP SCH (06:32)
[2018-05-05] MEDS ORDERED: ASCORBIC ACID 500 MG TAB PO SCH (09:00)
[2018-05-05] MEDS: METOPROLOL TARTRATE 25 MG TAB PO SCH (09:00)
[2018-05-05] MEDS ORDERED: LOSARTAN 50 MG TABLET PO SCH (09:00)
[2018-05-05] MEDS ORDERED: ASPIRIN 81 MG EC TAB PO SCH (09:00)
[2018-05-05] MEDS ORDERED: FERROUS SULFATE 325 MG TABLET.DR PO SCH (09:00)
[2018-05-05] MEDS ORDERED: PANTOPRAZOLE SODIUM 40 MG TABLET.DR PO SCH (09:00)
[2018-05-05] MEDS ORDERED: HEPARIN SODIUM 5000UNIT/ML 1ML VIAL IJ PRN ×2 (10:15)
[2018-05-05] MEDS ORDERED: NITROGLYCERIN 0.4 MG SL TAB SL PRN (10:15)
[2018-05-05] MEDS ORDERED: 0.9% SODIUM CHLORIDE 1000 ML IV BAG IV PRN (10:15)
[2018-05-05] MEDS ORDERED: LIDOCAINE HCL-MPF 1% 2ML VIAL IJ PRN (10:15)
[2018-05-05] MEDS ORDERED: ACETAMINOPHEN 325 MG TAB PO PRN (10:15)
[2018-05-05] MEDS ORDERED: SODIUM CHLORIDE 0.9% 1000ML 1,000 ML IV PRN (10:15)
[2018-05-05 11:00] VITALS: BP 143/78
[2018-05-05 11:45] VITALS: BP 156/83
[2018-05-05] MEDS: DOCUSATE SODIUM 100 MG CAP PO SCH (14:36)
--- NOTE | 2018-05-05 15:18 | NUR ---
NEURO SURGEON PAGED DR. LEONEL VASQUEZ FOR CLEARANCE, Addendum: 05/05/18 at 1524 by KATT DURBIN RN RN NEURO SURGEON PAGED DR. LEONEL VASQUEZ FOR CLEARANCE, OKAY TO D/C PT WITH SOFT CERVICAL COLLAR AND F/U IN 2 WEEKS.
[2018-05-05 16:00] VITALS: BP 142/74
--- NOTE | 2018-05-05 16:56 | NUR ---
CECILIA TRIPP REVIEWED, ASKED FOR PT EVAL THIS AM IN RESPONSE TO SPOUSE]' CONCERNS ABOUT PTS BALANCE/GAIT. PROB DC HOME THIS AFTERNOON.
[2018-05-05] MEDS ORDERED: POTASSIUM CHLORIDE 10% ELIXIR 20 MEQ/15 ML UDCUP PO SCH (21:00)
[2018-05-06 08:23] LABS: HEPATITIS Bs ANTIGEN SCREEN P Negative (Negative)
== END 2018-05-05 19:05 | disposition home or self-care (01) ==
LOC: EDH 15:42 → EDHIP 18:50 → 3DH 22:10
PROVIDERS: ADMIT Internal Medicine Critical Care Medicine; ATTEND Internal Medicine Critical Care Medicine
DX: S12.110A Anterior displaced Type II dens fracture, initial encounter for closed fracture (principal); D64.9 Anemia, unspecified; E78.5 Hyperlipidemia, unspecified; E87.6 Hypokalemia; I12.0 Hypertensive chronic kidney disease with stage 5 chronic kidney disease or end stage renal disease; N18.6 End stage renal disease; I25.10 Atherosclerotic heart disease of native coronary artery without angina pectoris; J44.1 Chronic obstructive pulmonary disease with (acute) exacerbation; W19.XXXA Unspecified fall, initial encounter; Y93.89 Activity, other specified; Y92.89 Other specified places as the place of occurrence of the external cause; Y99.8 Other external cause status; Z95.5 Presence of coronary angioplasty implant and graft; Z99.2 Dependence on renal dialysis; Z85.79 Personal history of other malignant neoplasms of lymphoid, hematopoietic and related tissues
CPT/HCPCS: 36415 ×3; 70450; 71045; 72125; 80048 ×2; 80053; 82040; 82550 ×3; 83735; 83874 ×3; 83880; 84443; 84484 ×4; 85025; 85027 ×2; 85610 ×2; 85730 ×2; 86701; 86704; 86706; 87340; 87390; 87520; 93005; 96374; 96375; 96376; 97161; 99284; C9113 ×2; G0378 ×48; G8978; G8979; G8980; G8981; G8982; G8983; J1644; J2060; J2405; J2765 ×3; J3480

== ENCOUNTER → 2018-06-17 | Outpatient (CLI) | payer OTHER ==
[~2018-06-17] MED LIST changes: +BENZ-51 PO; -DOCU100C33 PO; -FOLI1TAB85 PO; +HYDR-3421 PO; -LISI2.5T2 PO; +LOSA25TA41 PO; -TRAM50TA4 PO
== END | disposition home or self-care (01) ==
LOC: RAH 14:03
PROVIDERS: ATTEND Neuromusculoskeletal Medicine & OMM
DX: S12.110A Anterior displaced Type II dens fracture, initial encounter for closed fracture (principal); I65.29 Occlusion and stenosis of unspecified carotid artery; X58.XXXA Exposure to other specified factors, initial encounter; Y93.89 Activity, other specified; Y92.89 Other specified places as the place of occurrence of the external cause; Y99.8 Other external cause status
CPT/HCPCS: 72125